=== PATIENT | male | born 1965 | race Caucasian/White ===

== ENCOUNTER 2018-07-19 15:35 | Emergency (ER) | payer OTHER ==
--- NOTE | 2018-07-19 16:34 | RAD REPORT ---
EXAM DESCRIPTION: RAD - Chest Pa And Lat (2 Views) - 07/19/2018 4:24 pm CLINICAL HISTORY: Cough;Chest pain Chest pain. COMPARISON: No comparisons FINDINGS: The lungs are clear. The heart is normal in size. No displaced fractures. IMPRESSION: No acute or concerning finding suspected.
--- NOTE | 2018-07-19 18:07 | EDPHYS ---
Physician Documentation [facility] Name: Michael Carrero Age: 53 yrs Sex: Male : 1965 Arrival Date: 07/19/2018 Time: 15:36 Bed 19 Private MD: ED Physician Stephen Salter HPI: 07/19 17:04 This 53 yrs old Male presents to ER via Ambulatory with complaints of Cough, snw Rib Pain. 17:04 The patient or guardian reports cough, that is intermittent, x one year, smokes "off snw and on". Onset: The symptoms/episode began/occurred suddenly, 3 day(s) ago, began having pain in right lower ribs, states similar s/s 3 months ago to left lower ribs. Severity of symptoms: At their worst the symptoms were moderate. Associated signs and symptoms: The patient has no apparent associated signs or symptoms. The patient has experienced a previous episode, approximately 3 months ago. The patient has not recently seen a physician, the patient's primary care provider is Dr. Geovanna Simon. denies fever. Historical: - Allergies: 16:00 Codeine; hb - Home Meds: 16:01 Motrin Oral [Active]; gabapentin oral oral [Active]; lisinopril 30 mg Oral tab 1 tab hb once daily [Active]; Lantus 100 unit/mL Sub-Q soln twice a day [Active]; - PMHx: 16:01 Diabetes - IDDM; Hypertension; hb - Immunization history:: Adult Immunizations up to date. - Social history:: Smoking status: Patient uses tobacco products, smokes one pack cigarettes per day. - Ebola Screening: : No symptoms or risks identified at this time. ROS: 17:02 Constitutional: Negative for fever, chills, and weight loss, Eyes: Negative for injury, snw pain, redness, and discharge, ENT: Negative for injury, pain, and discharge, Neck: Negative for injury, pain, and swelling, Cardiovascular: Negative for chest pain, palpitations, and edema, Abdomen/GI: Negative for abdominal pain, nausea, vomiting, diarrhea, and constipation, Back: Negative for injury and pain, : Negative for injury, bleeding, discharge, and swelling, MS/Extremity: Negative for injury and deformity, Skin: Negative for injury, rash, and discoloration, Neuro: Negative for headache, weakness, numbness, tingling, and seizure. 17:02 Respiratory: Positive for cough, with no reported sputum, pleuritic chest pain to right lower ribs. Exam: 17:02 Constitutional: This is a well developed, well nourished patient who is awake, alert, snw and in no acute distress. Head/Face: Normocephalic, atraumatic. Eyes: Pupils equal round and reactive to light, extra-ocular motions intact. Lids and lashes normal. Conjunctiva and sclera are non-icteric and not injected. Cornea within normal limits. Periorbital areas with no swelling, redness, or edema. ENT: Nares patent. No nasal discharge, no septal abnormalities noted. Tympanic membranes are normal and external auditory canals are clear. Oropharynx with no redness, swelling, or masses, exudates, or evidence of obstruction, uvula midline. Mucous membranes moist. Neck: Trachea midline, no thyromegaly or masses palpated, and no cervical lymphadenopathy. Supple, full range of motion without nuchal rigidity, or vertebral point tenderness. No Meningismus. Chest/axilla: Normal chest wall appearance and motion. Nontender with no deformity. No lesions are appreciated. Cardiovascular: Regular rate and rhythm with a normal S1 and S2. No gallops, murmurs, or rubs. Normal PMI, no JVD. No pulse deficits. Respiratory: Lungs have equal breath sounds bilaterally, clear to auscultation and percussion. No rales, rhonchi or wheezes noted. No increased work of breathing, no retractions or nasal flaring. Back: No spinal tenderness. No costovertebral tenderness. Full range of motion. Skin: Warm, dry with normal turgor. Normal color with no rashes, no lesions, and no evidence of cellulitis. MS/ Extremity: Pulses equal, no cyanosis. Neurovascular intact. Full, normal range of motion. Neuro: Awake and alert, GCS 15, oriented to person, place, time, and situation. Cranial nerves II-XII grossly intact. Motor strength 5/5 in all extremities. Sensory grossly intact. Cerebellar exam normal. Normal gait. Psych: Awake, alert, with orientation to person, place and time. Behavior, mood, and affect are within normal limits. 17:02 Abdomen/GI: Inspection: bruising, right upper quadrant, Bowel sounds: normal, Palpation: abdomen is soft and non-tender, in the except just over ecchymotic area to right upper quad. Pt describes as rib pain. Vital Signs: 15:59 BP 167 / 103; Pulse 102; Resp 20; Temp 97.4; Pulse Ox 96% on R/A; Pain 5/10; hb 17:19 BP 120 / 83; Pulse 92; Resp 17; Pulse Ox 95% on R/A; tw2 18:17 BP 122 / 79; Pulse 89; Resp 19; Pulse Ox 97% on R/A; tw2 MDM: 16:28 Patient medically screened. snw 18:09 Data reviewed: vital signs, nurses notes. Data interpreted: Pulse oximetry: on room air snw is 95 %. Interpretation: acceptable. Counseling: I had a detailed discussion with the patient and/or guardian regarding: the historical points, exam findings, and any diagnostic results supporting the discharge/admit diagnosis, radiology results, the need for outpatient follow up, to return to the emergency department if symptoms worsen or persist or if there are any questions or concerns that arise at home, smoking cessation. Response to treatment: There is no appreciated change of the patient's symptoms at this time. 07/19 16:15 Order name: Chest Pa And Lat (2 Views) XRAY; Complete Time: 16:37 snw 07/19 17:02 Order name: US Abdomen Limited; Complete Time: 19:15 snw Administered Medications: No medications were administered Disposition: 18:38 Co-signature as Attending Physician, Stephen Salter MD. rn Disposition: 07/19/18 18:07 Discharged to Home. Impression: Cough, Flank pain. - Condition is Stable. - Discharge Instructions: Flank Pain, Adult, Smoking Hazards, Cool Mist Vaporizer, Cough, Adult. - Prescriptions for Tessalon Perles 100 mg Oral Capsule - take 1 capsule by ORAL route every 8 hours As needed; 15 capsule. - Medication Reconciliation Form, Thank You Letter, Antibiotic Education, Prescription Opioid Use form. - Follow up: Private Physician; When: 2 - 3 days; Reason: Recheck today's complaints, Continuance of care, Re-evaluation by your physician. Follow up: Emergency Department; When: As needed; Reason: Worsening of condition. Signatures: Dispatcher [employer] EDDorota Aguilar FNP-C [employer]-Cs[facility] Stephen Salter MD MD rn Baxter, Heather, RN RN hb Wise, Tara, RN RN tw2 Corrections: (The following items were deleted from the chart) 18:10 18:07 07/19/2018 18:07 Discharged to Home. Impression: Cough. Condition is Stable. snw Forms are Medication Reconciliation Form, Thank You Letter, Antibiotic Education, Prescription Opioid Use. Follow up: Private Physician; When: 2 - 3 days; Reason: Recheck today's complaints, Continuance of care, Re-evaluation by your physician. Follow up: Emergency Department; When: As needed; Reason: Worsening of condition. snw 18:18 18:10 07/19/2018 18:07 Discharged to Home. Impression: Cough; Flank pain. Condition is tw2 Stable. Forms are Medication Reconciliation Form, Thank You Letter, Antibiotic Education, Prescription Opioid Use. Follow up: Private Physician; When: 2 - 3 days; Reason: Recheck today's complaints, Continuance of care, Re-evaluation by your physician. Follow up: Emergency Department; When: As needed; Reason: Worsening of condition. snw
--- NOTE | 2018-07-19 18:07 | ER ---
Nurse's Notes [facility] Name: Michael Carrero Age: 53 yrs Sex: Male : 1965 Arrival Date: 07/19/2018 Time: 15:36 Bed 19 Private MD: Diagnosis: Cough;Flank pain Presentation: 07/19 15:58 Presenting complaint: Nonproductive cough x 1 year, right sided chest wall pain and SOB hb x 3 days. Denies fever. Transition of care: patient was not received from another setting of care. Onset of symptoms was July 16, 2018. Risk Assessment: Do you want to hurt yourself or someone else? Patient reports no desire to harm self or others. Care prior to arrival: None. 15:58 Method Of Arrival: Ambulatory hb 15:58 Acuity: CESAR 3 hb 16:24 Initial Sepsis Screen: Does the patient meet any 2 criteria? RR > 20 per min. HR > 90 tw2 bpm. Yes Does the patient have a suspected source of infection? Yes: Productive cough/pneumonia If YES to both, name of provider notified: Dorota WILBURN Historical: - Allergies: 16:00 Codeine; hb - Home Meds: 16:01 Motrin Oral [Active]; gabapentin oral oral [Active]; lisinopril 30 mg Oral tab 1 tab hb once daily [Active]; Lantus 100 unit/mL Sub-Q soln twice a day [Active]; - PMHx: 16:01 Diabetes - IDDM; Hypertension; hb - Immunization history:: Adult Immunizations up to date. - Social history:: Smoking status: Patient uses tobacco products, smokes one pack cigarettes per day. - Ebola Screening: : No symptoms or risks identified at this time. Screenin:24 Abuse screen: Denies threats or abuse. Nutritional screening: No deficits noted. tw2 Tuberculosis screening: No symptoms or risk factors identified. Fall Risk None identified. Assessment: 16:55 General: Appears in no apparent distress. unkempt, Behavior is cooperative, appropriate tw2 for age, talkative. Smells of pet odor. Pain: Complains of pain in right lateral anterior chest. Neuro: Level of Consciousness is awake, alert, obeys commands, Oriented to person, place, time, situation. Cardiovascular: Heart tones S1 S2 Patient's skin is warm and dry. Respiratory: Airway is patent Respiratory effort is even, unlabored, Respiratory pattern is regular, symmetrical, Breath sounds are clear bilaterally. GI: No signs and/or symptoms were reported involving the gastrointestinal system. Abdomen is flat, non-distended, Bowel sounds present X 4 quads. : No signs and/or symptoms were reported regarding the genitourinary system. EENT: No signs and/or symptoms were reported regarding the EENT system. Derm: No signs and/or symptoms reported regarding the dermatologic system. Musculoskeletal: No signs and/or symptoms reported regarding the musculoskeletal system. 17:19 Reassessment: Patient appears in no apparent distress at this time. No changes from tw2 previously documented assessment. Patient and/or family updated on plan of care and expected duration. Pain level reassessed. Patient is alert, oriented x 3, equal unlabored respirations, skin warm/dry/pink. 18:16 Reassessment: Patient appears in no apparent distress at this time. No changes from tw2 previously documented assessment. Patient and/or family updated on plan of care and expected duration. Pain level reassessed. Patient is alert, oriented x 3, equal unlabored respirations, skin warm/dry/pink. Vital Signs: 15:59 BP 167 / 103; Pulse 102; Resp 20; Temp 97.4; Pulse Ox 96% on R/A; Pain 5/10; hb 17:19 BP 120 / 83; Pulse 92; Resp 17; Pulse Ox 95% on R/A; tw2 18:17 BP 122 / 79; Pulse 89; Resp 19; Pulse Ox 97% on R/A; tw2 ED Course: 15:36 Patient arrived in ED. as 15:59 Triage completed. hb 16:00 Arm band placed on. hb 16:21 Dorota Humphrey FNP-C is PHCP. snw 16:21 Stephen Salter MD is Attending Physician. snw 16:24 Amelie Rome, NATA is Primary Nurse. tw2 16:24 Chest Pa And Lat (2 Views) XRAY In Process Unspecified. EDMS 16:24 Bed in low position. Call light in reach. dashboard developer on. Pulse ox on. NIBP on. tw2 18:04 US Abdomen Limited In Process Unspecified. EDMS 18:17 No provider procedures requiring assistance completed. Patient did not have IV access tw2 during this emergency room visit. Administered Medications: No medications were administered Outcome: 18:07 Discharge ordered by . elyse 18:17 Discharged to home ambulatory, with significant other. tw2 18:17 Condition: stable 18:17 Discharge instructions given to patient, significant other, Instructed on discharge instructions, follow up and referral plans. medication usage, Demonstrated understanding of instructions, follow-up care, medications, Prescriptions given X 1. 18:18 Patient left the ED. tw2 Signatures: Dispatcher [employer] EDMS Dorota Humphrey, JOHN-C [employer] ATTENDANT-Mariana Charles Heather, RN RN Amelie Rome RN RN tw2
--- NOTE | 2018-07-19 18:12 | RAD REPORT ---
EXAM DESCRIPTION: US - Abdomen Exam Limited - 07/19/2018 6:04 pm CLINICAL HISTORY: ecchymosis;Abd pain COMPARISON: No comparisons FINDINGS: The gallbladder demonstrates no gallstones. No pericholecystic fluid or gallbladder wall t hickening. The common bile duct is normal measuring 5 mm. The liver demonstrates no findings of intrahepatic biliary dilatation. IMPRESSION: Unremarkable examination.
== END 2018-07-19 18:18 | disposition home or self-care (01) ==
LOC: ER 15:35
DX: R05 Cough (principal); R10.9 Unspecified abdominal pain; E11.9 Type 2 diabetes mellitus without complications; I10 Essential (primary) hypertension; Z79.4 Long term (current) use of insulin; F17.210 Nicotine dependence, cigarettes, uncomplicated
CPT/HCPCS: 71046; 76705; 99284